=== PATIENT | female | born 1950 | race Caucasian/White ===

== ENCOUNTER 2017-07-31 14:44 | Emergency (ER) | payer MEDICARE ==
[~2017-07-31] VITALS: Ht 162.6 cm; Wt 71.0 kg
[~2017-07-31 14:44] MED LIST: 1-ME1LIQ PO; ASPI81TA82 PO; ATOR10TA PO; METH500T3 PO; METO100T PO; ZOLO50TA PO
[2017-07-31 14:46] VITALS: BP 171/86; PULSE 55; RESP 18; TEMP 98.9; O2SAT 96
[2017-07-31] MEDS ORDERED: PANTOPRAZOLE SOD 40 MG DELAYED RELEASE TAB PO ONE (15:30)
--- NOTE | 2017-07-31 15:56 | PD ---
HPI Chief Complaint: GI Complaint Time Seen by Provider: 15:14 Travel History International Travel<30 days: No Contact w/Intl Traveler<30days: No Traveled to known affect area: No History of Present Illness HPI 66-year-old female presents the emergency department with several week history of intermittent epigastric/abdominal pain which is not improved or worsened by food. Patient is a history of gallbladder removal as well as appendectomy in the past. Patient noted some "coffee grounds in her stool noted today.". Patient denies nausea or vomiting. Pain is intermittent and localized in the epigastric and right upper quadrant. Patient states pain at worst is 4 out of 10. She came in today due to the change in her stool. Patient brought a stool sample with her. Patient states she is not a significant drinker. She has no history of diverticulitis is diagnosed with diverticulosis on her last colostomy which was several years ago. Patient denies any other significant complaints. Patient currently does not take any medications other than for her blood pressure. Patient has multiple allergies including sulfa, doxycycline, erythromycin, minocycline, nitrofurantoin, and tigecycline. PFSH Past Medical History Hx Anticoagulant Therapy: Yes (81mg asa) Heart Rhythm Problems: Yes ("Arrythmia", cardiomegaly ) Cardiovascular Problems: Yes (htn, on meds) Cerebrovascular Accident: Yes (TIA) Hypertension: Yes Immunizations Current: Yes LMP: n/a Menopausal: Yes Past Surgical History Appendectomy: Yes Cardiac Surgery: Yes (Heart cath) Section: Yes Cholecystectomy: Yes Gynecologic Surgery: Yes () Social History Alcohol Use: Yes (Occ.) Tobacco Use: No Substance Use: No Allergies-Medications (Allergen,Severity, Reaction): Coded Allergies: Sulfa (Sulfonamide Antibiotics) (Unverified Allergy, Unknown, 03/25/17) doxycycline (Unverified Allergy, Unknown, 03/25/17) erythromycin base (Unverified Allergy, Unknown, 03/25/17) minocycline (Unverified Allergy, Unknown, 03/25/17) nitrofurantoin (Unverified Allergy, Unknown, 03/25/17) tigecycline (Unverified Allergy, Unknown, 03/25/17) Reported Meds & Prescriptions Reported Meds & Active Scripts Active Omeprazole 40 Mg Cap 40 Mg PO DAILY Methocarbamol 500 Mg Tab 500 Mg PO QID PRN Reported Atorvastatin 10 mg (Atorvastatin Calcium) 10 Mg Tab 10 Mg PO HS 30 Days Aspir-81 (Aspirin) 81 Mg Tab 81 Mg PO DAILY 1-Methyl 2-Pyrrolidinone (1-Methyl 2-Pyrrolidone (Bulk)) 10 Mg Tab 1 Tab PO DAILY Metoprolol Tartrate 100 mg (Metoprolol Tartrate) 100 Mg Tab 100 Mg PO BID Zoloft (Sertraline HCl) 50 Mg Tab 50 Mg PO DAILY Review of Systems Except as stated in HPI: all other systems reviewed are Neg General / Constitutional: No: Fever Eyes: No: Visual changes HENT: No: Headaches Cardiovascular: No: Chest Pain or Discomfort Respiratory: No: Shortness of Breath Gastrointestinal: Positive: Abdominal Pain, Changes in Bowel Habits, No: Nausea , Vomiting, Diarrhea, Hematemesis, Hematochezia, Constipation, Indigestion, Dysphagia, Loss of Appetite Genitourinary: No: Dysuria Musculoskeletal: No: Pain Skin: No Rash Neurologic: No: Weakness Psychiatric: No: Depression Endocrine: No: Polydipsia Hematologic/Lymphatic: No: Easy Bruising Physical Exam Narrative GENERAL: Patient is in no acute distress. SKIN: Warm and dry. Normal color. Normal turgor. HEAD: Atraumatic. Normocephalic. EYES: Pupils equal and round. No scleral icterus. No injection or drainage. ENT: No nasal bleeding or discharge. Mucous membranes pink and moist. NECK: Trachea midline. Supple and nontender without lymphadenopathy. CARDIOVASCULAR: Regular rate and rhythm. RESPIRATORY: No accessory muscle use. Clear to auscultation. Breath sounds equal bilaterally. GASTROINTESTINAL: Abdomen soft, mild epigastric tenderness with palpation, nondistended. No rebound or guarding. Hepatic and splenic margins not palpable. MUSCULOSKELETAL: Extremities without clubbing, cyanosis, or edema. No obvious deformities. NEUROLOGICAL: Awake and alert. No obvious cranial nerve deficits. Motor grossly within normal limits. Five out of 5 muscle strength in the arms and legs. Normal speech. PSYCHIATRIC: Appropriate mood and affect; insight and judgment normal. Data Data Last Documented VS Vital Signs Date Time Temp Pulse Resp B/P (MAP) Pulse Ox O2 Delivery O2 Flow Rate FiO2 07/31/17 14:46 98.9 55 18 171/86 (114) 96 Room Air Orders Orders Complete Blood Count With Diff (07/31/17 15:30) Comprehensive Metabolic Panel (07/31/17 15:30) Lipase (07/31/17 15:30) Lactic Acid (07/31/17 15:30) Prothrombin Time / Inr (Pt) (07/31/17 15:30) Act Partial Throm Time (Ptt) (07/31/17 15:30) Pantoprazole (Protonix) (07/31/17 15:30) Labs Laboratory Tests Test 07/31/17 15:50 White Blood Count 7.0 TH/MM3 Red Blood Count 4.16 MIL/MM3 Hemoglobin 13.2 GM/DL Hematocrit 39.0 % Mean Corpuscular Volume 93.6 FL Mean Corpuscular Hemoglobin 31.6 PG Mean Corpuscular Hemoglobin Concent 33.8 % Red Cell Distribution Width 12.7 % Platelet Count 207 TH/MM3 Mean Platelet Volume 8.3 FL Neutrophils (%) (Auto) 57.7 % Lymphocytes (%) (Auto) 33.0 % Monocytes (%) (Auto) 6.4 % Eosinophils (%) (Auto) 2.5 % Basophils (%) (Auto) 0.4 % Neutrophils # (Auto) 4.0 TH/MM3 Lymphocytes # (Auto) 2.3 TH/MM3 Monocytes # (Auto) 0.5 TH/MM3 Eosinophils # (Auto) 0.2 TH/MM3 Basophils # (Auto) 0.0 TH/MM3 CBC Comment DIFF FINAL Differential Comment Prothrombin Time 10.4 SEC Prothromb Time International Ratio 1.0 RATIO Activated Partial Thromboplast Time 26.8 SEC Blood Urea Nitrogen 13 MG/DL Creatinine 0.78 MG/DL Random Glucose 101 MG/DL Total Protein 7.2 GM/DL Albumin 3.9 GM/DL Calcium Level 8.9 MG/DL Alkaline Phosphatase 64 U/L Aspartate Amino Transf (AST/SGOT) 10 U/L Alanine Aminotransferase (ALT/SGPT) 19 U/L Total Bilirubin 0.4 MG/DL Sodium Level 142 MEQ/L Potassium Level 4.0 MEQ/L Chloride Level 108 MEQ/L Carbon Dioxide Level 27.2 MEQ/L Anion Gap 7 MEQ/L Estimat Glomerular Filtration Rate 73 ML/MIN Lactic Acid Level 1.0 mmol/L Lipase 106 U/L MDM Medical Decision Making Medical Screen Exam Complete: Yes Emergency Medical Condition: Yes Differential Diagnosis Abdominal pain. Gastric ulcer. GI bleed. Narrative Course Guaiac is performed on the stool sample brought in and found to be negative Labs ordered including CBC, CMP, lipase. Patient is given 40 mg pantoprazole by mouth. Labs are all within normal limits. Patient will be continued on omeprazole 40 mg daily for 30 days. Diet is given to the patient and follow-up was recommended with her primary care physician as needed. Patient can return to emergency Department with worsening symptoms if necessary. Diagnosis Primary Impression: Gastric ulcer Qualified Codes: K25.3 - Acute gastric ulcer without hemorrhage or perforation Referrals: Primary Care Physician Patient Instructions: Diet for Stomach Ulcers and Gastritis (ED), Gastroesophageal Reflux Disease (DC), General Instructions Additional Instructions: Guaiac is performed on the stool sample brought in and found to be negative Labs ordered including CBC, CMP, lipase. Patient is given 40 mg pantoprazole by mouth. Labs are all within normal limits. Patient will be continued on omeprazole 40 mg daily for 30 days. Diet is given to the patient and follow-up was recommended with her primary care physician as needed. Patient can return to emergency Department with worsening symptoms if necessary. Med/Other Pt SpecificInfo: Prescription(s) given Scripts Omeprazole (Omeprazole) 40 Mg Cap 40 MG PO DAILY, #30 CAP 0 Refills Prov: Monica Brooks MD 07/31/17 Disposition: 01 DISCHARGE HOME Condition: Stable Shantanu Ortez Jul 31, 2017 15:56
[2017-07-31 16:04] LABS: BASOPHIL % 0.4 % (0.0-2.0); EOSINOPHIL # 0.2 TH/MM3 (0-0.4); EOSINOPHIL % 2.5 % (0.0-4.0); HEMOGLOBIN 13.2 GM/DL (11.6-15.3); LYMPHOCYTE # 2.3 TH/MM3 (1.0-4.8); MEAN CELL VOLUME 93.6 FL (80.0-100.0); MEAN CORPUSCULAR HEMOGLOBIN 31.6 PG (27.0-34.0); MEAN CORPUSCULAR HGB CONC 33.8 % (32.0-36.0); MEAN PLATELET VOLUME 8.3 FL (7.0-11.0); MONO % 6.4 % (0.0-8.0); MONOCYTE # 0.5 TH/MM3 (0-0.9); NEUT % 57.7 % (16.0-70.0); PLATELET COUNT 207 TH/MM3 (150-450); RED BLOOD COUNT 4.16 MIL/MM3 (4.00-5.30); RED CELL DISTRIBUTION WIDTH 12.7 % (11.6-17.2)
[2017-07-31 16:12] LABS: PROTHROMBIN TIME - PATIENT 10.4 SEC (9.8-11.6)
[2017-07-31 16:20] LABS: ALBUMIN 3.9 GM/DL (3.4-5.0); ALT (GPT) 19 U/L (10-53); AST (GOT) 10 U/L (15-37); BICARBONATE 27.2 MEQ/L (21.0-32.0); BLOOD UREA NITROGEN 13 MG/DL (7-18); CALCIUM 8.9 MG/DL (8.5-10.1); CHLORIDE 108 MEQ/L (98-107); CREATININE 0.78 MG/DL (0.50-1.00); GLOMERULAR FILTRATION RATE 73 ML/MIN (>89); GLUCOSE,RANDOM 101 MG/DL (74-106); LIPASE 106 U/L (73-393); SODIUM (NA) 142 MEQ/L (136-145)
[2017-07-31 16:22] LABS: ALKALINE PHOSPHATASE 64 U/L (45-117); TOTAL BILIRUBIN ADULT 0.4 MG/DL (0.2-1.0); TOTAL PROTEIN 7.2 GM/DL (6.4-8.2)
[2017-07-31] MEDS ORDERED: OMEP40CA2 PO (16:27)
== END 2017-07-31 17:03 | disposition home or self-care (01) ==
LOC: NEPE 14:44
DX: K25.3 Acute gastric ulcer without hemorrhage or perforation (principal); I10 Essential (primary) hypertension; Z86.73 Personal history of transient ischemic attack (TIA), and cerebral infarction without residual deficits; Z79.82 Long term (current) use of aspirin; Z79.899 Other long term (current) drug therapy; Z88.1 Allergy status to other antibiotic agents; Z88.8 Allergy status to other drugs, medicaments and biological substances
CPT/HCPCS: 80053; 83605; 83690; 85025; 85610; 85730; 99283

== ENCOUNTER 2017-09-30 07:16 | Observation (INO) | payer MEDICARE ==
[2017-09-30] VITALS (7 sets, daily range): BP systolic 171–185; BP diastolic 96–100; PULSE 54–73; RESP 14–18; TEMP 96.1–98.2; O2SAT 94–97
[~2017-09-30] VITALS: Ht 157.5 cm; Wt 70.5 kg
[~2017-09-30 07:16] MED LIST changes: +ACETAMINOPHEN 1000 MG/100 ML 100 ML IV ONE; +ASPI1TAB57 PO; -ASPI81TA82 PO; -ATOR10TA PO; +ATOR10TA15 PO; +LIDOCAINE 1%/EPINEPHrine 1:100,000 SOLN 30 ML VIAL ONE; +OMEP40CA2 PO; +OXYMETAZOLINE HCL 0.05% 15 ML NASAL SPRAY ONE; +SERT-132 PO; -ZOLO50TA PO
[2017-09-30] MEDS ORDERED: APREPITANT 40 MG CAP ONE (08:34)
[2017-09-30] MEDS ORDERED: MIDAZOLAM HCL 2 MG/2 ML VIAL ONE (08:34)
[2017-09-30] MEDS ORDERED: FAMOTIDINE 20 MG/2 ML VIAL ONE (08:39)
[2017-09-30] MEDS ORDERED: LACTATED RINGER'S 1000 ML INJ 1,000 ML ONE (08:39)
[2017-09-30] MEDS ORDERED: SODIUM CHLORIDE 0.9% INJ 50 ML ONE (08:40)
[2017-09-30] MEDS ORDERED: AMPICILLIN-SULBACTAM INJ 3 GM VIAL ONE (08:40)
[2017-09-30] MEDS ORDERED: CHLORHEXIDINE GLUCONATE 2 % 1 PACK (2 CLOTHS) TOPICAL PRN (09:00)
[2017-09-30] MEDS ORDERED: AMPICILLIN/SULBAC 1500 MG/NS 100 ML IV SCH ×2 (09:00)
[2017-09-30] MEDS ORDERED: METOPROLOL TARTRATE 25 MG TAB PO PRN (09:00)
[2017-09-30] MEDS ORDERED: SODIUM CHLORID 0.9% 500 ML IV PRN (09:00)
[2017-09-30] MEDS ORDERED: LACTATED RINGER'S 1000 ML IV PRN (09:00)
[2017-09-30] MEDS ORDERED: POVIDONE IODINE 5% (ANTISEPSIS KIT) 4 APPLICATIONS EACH NARE PRN (09:00)
[2017-09-30] MEDS ORDERED: INSULIN HUMAN REGULAR 1,000 UNITS/10 ML VIAL SQ PRN (09:00)
[2017-09-30] MEDS ORDERED: ONDANSETRON HCL 4 MG/2 ML VIAL IV PUSH PRN (11:00)
[2017-09-30] MEDS: LACTATED RINGER'S 1000 ML INJ 1,000 ML IV SCH ×2 (11:00→23:30)
[2017-09-30] MEDS: ACETAMINOPHEN/HYDROcodone 325 MG/5 MG TAB PO PRN ×3 (14:19→21:43)
[2017-09-30] MEDS: AMPICILLIN/SULBAC 3 GM/NS 100 ML IV SCH ×2 (16:29)
--- NOTE | 2017-09-30 18:57 | EKG ---
Date Performed: 09/30/2017 Time Performed: 08:16:18 PTAGE: 66 years EKG: SINUS BRADYCARDIA BORDERLINE ECG PREVIOUS TRACING : 05/05/2015 18.10 WHEN COMPARED TO PRIOR EKG THE PATIENT IS NOW BRADYCARDIC. DOCTOR: Alecia Campos Interpretating Date/Time 09/30/2017 18:55:40
[2017-10-01] VITALS: BP 120/74; PULSE 48; RESP 18; TEMP 96.4; O2SAT 99
[2017-10-01] MEDS: AMPICILLIN/SULBAC 3 GM/NS 100 ML IV SCH ×4 (00:26→08:52)
[2017-10-01] MEDS: ACETAMINOPHEN/HYDROcodone 325 MG/5 MG TAB PO PRN ×2 (04:03→08:15)
[2017-10-01 07:50] VITALS: BP 146/81; PULSE 85; RESP 20; TEMP 97.8; O2SAT 97
[2017-10-01 09:15] VITALS: RESP 18
[2017-10-01] MEDS ORDERED: ONDANSETRON HCL 4 MG/2 ML VIAL IV PUSH ONE (12:00)
[2017-10-01] MEDS ORDERED: LIDOCAINE HCL 1% PF 5 ML SYRINGE OTHER ONE (12:00)
[2017-10-01] MEDS ORDERED: PROPOFOL 200 MG/20 ML AMP IV ONE (12:00)
[2017-10-01] MEDS ORDERED: DEXAMETHASONE SOD PHOS 4 MG/ML VIAL IV ONE (12:00)
[2017-10-01] MEDS ORDERED: ePHEDrine/NS 25 MG/5 ML SYRINGE IV ONE (12:00)
[2017-10-01] MEDS ORDERED: LACTATED RINGER'S 1000 ML INJ 1,000 ML IV ONE (12:00)
[2017-10-01] MEDS ORDERED: SUCCINYLCHOLINE CHLORIDE 200 MG/10 ML VIAL IV ONE (12:00)
--- NOTE | 2017-10-03 09:26 | MP ---
cc: SCOTT HOWARD MD DATE OF SURGERY 09/30/[address] Scott Howard PREOPERATIVE DIAGNOSIS 1. Chronic pansinusitis. 2. Nasal airway obstruction. 3. Septal deviation. 4. Hypertrophy of inferior turbinates. POSTOPERATIVE DIAGNOSIS 1. Chronic pansinusitis. 2. Nasal airway obstruction. 3. Septal deviation. 4. Hypertrophy of inferior turbinates. OPERATION PERFORMED 1. Open repair nasal septal fracture. 2. Bilateral submucosal resection of inferior turbinates. 3. Bilateral endoscopic maxillary antrostomy. 4. Bilateral endoscopic exploration of frontal sinus duct. 5. Bilateral endoscopic sphenoidotomy with removal of sphenoid sinus tissue. INDICATIONS The indications are documented in the history and physical. DESCRIPTION OF OPERATION The patient was taken to OR #2 and placed in the supine position. Following induction of general anesthesia and intubation, the nose was packed bilaterally with cotton pledgets saturated in 0.05% oxymetazoline. The nasal septal mucosa and inferior turbinates were injected with a total of 8 mL of 1% Xylocaine with epinephrine 1:100,000. She was then prepped and draped for surgery. The packing was removed and a hemitransfixion incision was made in the left nasal vestibule and through this incision the septal mucosa was elevated as far as the junction of the bony cartilaginous septum. This was followed by removal of a cumulative area of 2 x 2.5 cm of quadrangular cartilage. This showed evidence of old septal fracture with numerous comminuted fragments which were obstructing the nasal airway. 1.5 cm dorsal and caudal cartilaginous struts were preserved during this process. Next, the mucosa was elevated from the bony septum and the maxillary crest and these were removed using Heather forceps and a 6 mm Cristian chisel. The incision was then closed with a running suture of 4-0 chromic and the mucosal layers of septum were approximated to each other with a quilting stitch of 4-0 plain gut. The inferior turbinates were then fractured out medially and stab incisions made along their inferior surfaces. Through these incisions the submucosal soft tissue was reduced using a curet and preserving the conchal bone. The incisions were then cauterized using the suction Bovie at 45 huntley and the remnants of the inferior turbinates were then re-lateralized to the lateral nasal wall. At this point forward the operation was done using endoscopic visualization with a 0-degree fiberoptic scope and the Acclarent balloon technique. Additional injections of lidocaine and epinephrine were made into the mucosa of the middle turbinate and of the ethmoid cells bilaterally. The left side was addressed first beginning with the frontal duct dilator. The guidewire was advanced into the frontal sinus and the balloon was advanced over the wire. The balloon was inflated at three levels superiorly at the midpoint and inferiorly at the junction with the ethmoid cavities to a pressure of 12 atmospheres. It was then removed and the scope was used to verify patency of the duct all the way into the frontal sinus. The right side was then operated in the same fashion. The maxillary was addressed next, once again beginning on the left side. The guidewire was advanced into the maxillary sinus and the balloon was inflated into the infundibulum of the maxillary to a pressure of 12 atmospheres. This was also performed bilaterally. Lastly, the sphenoid ostia were dilated bilaterally on each side using a 0-degree scope and Blakesley forceps and the cavity was debrided of inflamed mucosa. Both sides were then irrigated with saline. Stammberger sinus foam was placed into the superior vault and middle meatus bilaterally. The inferior nasal vault was then packed with 5.5 cm Rapid Rhino packs, each inflated with 5 mL of air and the procedure was terminated. The patient was reversed from anesthesia and taken to Recovery in good condition. There were no complications. Blood loss was 200 mL. MD ADRY Chun/TREMAYNE /6:26 AM /8:59 AM
== END 2017-10-01 09:46 | disposition home or self-care (01) ==
LOC: PHSDC 07:16 → PH3A 11:43
PROVIDERS: ADMIT Otolaryngology; ATTEND Otolaryngology
DX: J32.4 Chronic pansinusitis (principal); S02.2XXA Fracture of nasal bones, initial encounter for closed fracture; J34.2 Deviated nasal septum; J34.3 Hypertrophy of nasal turbinates; R00.1 Bradycardia, unspecified
CPT/HCPCS: 00160; 21336; 31256; 31276; 31288; 93005; 94762; 96365; 96375; 96376; G0378; J0131; J0295; J0330; J1100; J2250; J2405; J3010; J7120; J8501